=== PATIENT | male | born 1960 ===

== ENCOUNTER 2023-12-01 20:01 | Observation (INO) ==
[2023-12-01 22:55] LABS: INR 1.44 (0.83-1.13)
[2023-12-01 23:06] LABS: Hematocrit 45.1 % (38-53); Hemoglobin 15.2 g/dL (13.2-16.3); Mean Corpuscular Hemoglobin 28.5 pg (27-33); Mean Corpuscular Hgb Conc 33.7 g/dL (31-36); Mean Corpuscular Volume 84.5 fL (80-97); Mean Platelet Volume 6.9 fL (7.5-11.2); Platelet Count 236 10^3/uL (150-450); Red Blood Count 5.33 10^6/uL (4.06-5.63); Red Cell Distribution Width 14.5 % (12-17); White Blood Count 24.7 10^3/uL (3.6-10.2)
[2023-12-01 23:27] LABS: ABS Basophils 0.1 10^3/uL (0.0-0.1); ABS Lymphocytes 0.5 10^3/uL (1.0-4.8); ABS Monocytes 0.8 10^3/uL (0.0-1.1); ABS Neutrophils 23.3 10^3/uL (1.5-7.6); ABS Nucleated RBC 0.01 10^3/ul; Lymphocyte % 2.1 %
[2023-12-01 23:29] LABS: Albumin 4.2 g/dL (3.2-5.2); Albumin/Globulin Ratio 1.4 (1-3); C Reactive Protein 189.39 mg/L (<8.01); Creatinine, Serum 2.32 mg/dL (0.67-1.17); Globulin 2.9 g/dL (2-4); Potassium 4.3 mmol/L (3.5-5.0); Total Protein 7.1 g/dL (6.4-8.9); eGFR CKD-EPI 30.8 (>60)
[2023-12-01] MEDS: Lactated Ringers SEPSIS* BAG 1,980 ML IV ONE (23:52)
[2023-12-01] MEDS: Cefepime 2 GM in Dextrose 2 GM/50 ML BAG IV ONE (23:53)
[2023-12-02] MEDS: Albuterol 2.5mg/3 ml (0.083%) NEB.SOLN INH ONE (00:13)
[2023-12-02 00:16] LABS: High Sensitivity Troponin 1 Hr 46 pg/mL (<20)
[2023-12-02 00:38] LABS: Urine Appearance Turbid; Urine Bilirubin Negative (Negative); Urine Blood Trace (Negative); Urine Color Yellow; Urine Glucose Trace (Negative); Urine Ketones Trace (Negative); Urine Nitrite Negative (Negative); Urine Protein 2+ (>=100 mg/dL) (Negative); Urine Specific Gravity 1.033 (1.002-1.030); Urine Urobilinogen Negative (Negative); Urine pH 5.5 (5.0-8.0)
[2023-12-02] MEDS: Azithromycin 500 mg/250 ml NS 500 MG/250 ML BAG IVPB ONE (00:41)
[2023-12-02 00:42] LABS: Urine Bacteria Absent /HPF (Absent); Urine Red Blood Cell Trace(0-2/hpf) /HPF (0-Trace); Urine Squamous Epithelial Cell Present /HPF (Absent); Urine White Blood Cell Trace(0-5/hpf) /HPF (0-Trace)
[2023-12-02 02:57] LABS: Direct Bilirubin 0.5 mg/dL (0.03-0.18); Indirect Bilirubin 1.5 mg/dL (0.3-1.0)
[2023-12-02] MEDS ORDERED: Zosyn per Pharmacy NOTE FOLLOW UP SCH (04:00)
[2023-12-02] MEDS: Piperacillin/Tazobac 3.375 BAG 3.375 GM/100 ML BAG IV ONE (04:11)
[2023-12-02] MEDS: Aspirin EC 81 mg TAB.EC (enteric coated) PO SCH (08:45)
[2023-12-02] MEDS: ZOSYN 3.375 GM Q8H per EXTENDED INFUSION IV SCH ×2 (08:47→17:01)
[2023-12-02] MEDS: Heparin 5000 UNITS/ML 1 mL VIAL SUBCUT SCH (08:51)
[2023-12-02 09:04] LABS: Urine Creatinine Concentration 185.74 mg/dL (20.00-370.00)
[2023-12-02] MEDS: Lactated Ringers 1000 ml BAG 1,000 ML IV ONE ×2 (15:08→21:06)
[2023-12-02] MEDS: Azithromycin 500 mg/250 ml NS 500 MG/250 ML BAG IVPB SCH (22:21)
[2023-12-03 05:29] LABS: ABS Basophils 0.1 10^3/uL (0.0-0.1); ABS Lymphocytes 0.5 10^3/uL (1.0-4.8); ABS Monocytes 0.5 10^3/uL (0.0-1.1); ABS Neutrophils 11.8 10^3/uL (1.5-7.6); Eosinophil % 0.3 %; Hematocrit 37.8 % (38-53); Hemoglobin 13.1 g/dL (13.2-16.3); Lymphocyte % 3.7 %; Mean Corpuscular Hemoglobin 28.8 pg (27-33); Mean Corpuscular Hgb Conc 34.6 g/dL (31-36); Mean Corpuscular Volume 83.3 fL (80-97); Mean Platelet Volume 6.8 fL (7.5-11.2); Platelet Count 191 10^3/uL (150-450); Red Blood Count 4.54 10^6/uL (4.06-5.63); Red Cell Distribution Width 14.2 % (12-17); White Blood Count 12.9 10^3/uL (3.6-10.2)
[2023-12-03 06:19] LABS: Albumin 3.2 g/dL (3.2-5.2); Albumin/Globulin Ratio 1.3 (1-3); Creatinine, Serum 1.37 mg/dL (0.67-1.17); Direct Bilirubin 0.3 mg/dL (0.03-0.18); Globulin 2.4 g/dL (2-4); Indirect Bilirubin 0.7 mg/dL (0.3-1.0); Magnesium 1.7 mg/dL (1.9-2.7); Potassium 3.7 mmol/L (3.5-5.0); Total Protein 5.6 g/dL (6.4-8.9)
[2023-12-03] MEDS: Albuterol/Ipratropium NEB.SOL (2.5/0.5 MG) 3 ML NEB.SOLN INH PRN (08:35)
[2023-12-03 13:33] VITALS: BP 141/93
== END 2023-12-03 14:00 | disposition home or self-care (01) ==
LOC: EDHOLD 20:01 → ED 20:01 → SUATTDRO 12-02 01:21 → MED 12-02 08:35
PROVIDERS: ADMIT Internal Medicine; ATTEND Internal Medicine